=== PATIENT | female | born 2005 | race Caucasian/White ===

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

== ENCOUNTER → 2025-01-21 | Outpatient (CLI) | payer OTHER | LOC: LAB SHORT 17:18 → LAB 17:18 | DX: Z32.01 Encounter for pregnancy test, result positive (principal) | CPT/HCPCS: 84702 ==

== ENCOUNTER → 2025-02-18 | Outpatient (CLI) | payer OTHER ==
[2025-02-18 15:51] LABS: Source, Urine Clean Catch
[2025-02-18 17:23] LABS: Appearance, Urine Clear (Clear); Bilirubin, Urine Neg (Neg); Blood, Urine 1+ (Neg); Color, Urine Yellow (P-Yellow); Glucose Qualitative, Urine Neg (Neg); Ketones, Urine Neg (Neg); Leukocyte Esterase, Urine Neg (Neg); Nitrite, Urine Neg (Neg); Protein, Urine 1+ (Neg); Specific Gravity, Urine 1.025 (1.003-1.022); Urobilinogen, Urine NORM (Normal)
[2025-02-18 17:32] LABS: BASOPHILS ABSOLUTE AUTO 0.04 K/mm3 (0.00-0.23); BASOPHILS PERCENT AUTO 1 % (0-2); EOSINOPHILS ABSOLUTE AUTO 0.16 K/mm3 (0.00-0.68); EOSINOPHILS PERCENT AUTO 2 % (0-6); Hematocrit 39.8 % (33.0-51.0); IMMATURE GRAN ABSOLUTE AUTO 0.02 K/mm3 (0.00-0.10); IMMATURE GRAN PERCENT AUTO 0 % (0-1); LYMPHOCYTES ABSOLUTE AUTO 1.25 K/mm3 (0.84-5.20); LYMPHOCYTES PERCENT AUTO 17 % (21-46); MONOCYTES ABSOLUTE AUTO 0.36 K/mm3 (0.16-1.47); MONOCYTES PERCENT AUTO 5 % (4-13); Mean Corpuscular HGB 26.1 pg (26.0-34.0); Mean Corpuscular HGB Conc 32.7 g/dL (31.5-36.5); Mean Corpuscular Volume 80 fL (80-100); NEUTROPHILS ABSOLUTE AUTO 5.65 K/mm3 (1.96-9.15); NEUTROPHILS PERCENT AUTO 76 % (41-73); Platelet Count 334 K/mm3 (150-400); RDW Coefficient Variation 14.6 % (11.7-14.2); RDW Standard Deviation 42.1 fL (35.1-46.3); Red Blood Cell Count 4.99 M/mm3 (3.80-5.20); White Blood Cell Count 7.48 K/mm3 (4.00-11.30)
[2025-02-18 17:35] LABS: Bacteria Few /hpf; Calcium Oxalate Crystals Few /hpf; Mucus Light (0-Heavy); Squamous Epithelial Cells Few /hpf (Few); White Blood Cells, Urine 0-2 /hpf (0-5)
[2025-02-21 09:33] LABS: HEPATITIS B SURFACE ANTIGEN Negative (Negative)
[2025-02-21 13:35] LABS: HIV 1,2 COMBO ANTIGEN/ANTIBODY Negative (Negative)
[2025-02-21 13:54] LABS: HEPATITIS C AB CIA INTERP Negative (Negative); HEPATITIS C ANTIBODY CIA INDEX 0.09 IV
== END ==
LOC: LAB 13:59 → LAB SHORT 13:59
PROVIDERS: Registered Nurse Community Health
DX: Z34.91 Encounter for supervision of normal pregnancy, unspecified, first trimester (principal)
CPT/HCPCS: 81001; 84443; 86803; 87086; 87340; 87389

== ENCOUNTER → 2025-02-28 | Outpatient (CLI) | payer OTHER ==
[2025-02-28 18:17] LABS: Chlamydia Trachomatis Urine NOT DETECTED (NOT DETECT); Neisseria Gonorrhoea Urine NOT DETECTED (NOT DETECT)
== END ==
LOC: LAB SHORT 16:15 → LAB 16:15
PROVIDERS: Registered Nurse Community Health
DX: Z34.91 Encounter for supervision of normal pregnancy, unspecified, first trimester (principal)
CPT/HCPCS: 87491; 87591

== ENCOUNTER 2025-09-28 01:02 | Inpatient (IN) | payer OTHER ==
[~2025-09-28] VITALS: Ht 175.3 cm; Wt 118.2 kg
[2025-09-28] VITALS (86 sets, daily range): BP systolic 92–165; BP diastolic 52–93
[2025-09-28] MEDS ORDERED: Carboprost Tromethamine 250 MCG/ML 1ML Amp IM PRN (02:00)
[2025-09-28] MEDS ORDERED: OXYTOCIN/RINGER'S LACTATE 500 ML IV PRN (02:00)
[2025-09-28] MEDS ORDERED: Oxytocin 10 Unit / ML Vial IM PRN (02:00)
[2025-09-28] MEDS ORDERED: ePHEDrine Sulfate 50 MG/ML 1ML Injection XX PRN (02:00)
[2025-09-28] MEDS ORDERED: Methylergonovine Maleate 0.2MG / ML 1ML Amp IM PRN (02:00)
[2025-09-28] MEDS ORDERED: Ondansetron HCl 2 MG / ML 2ML Vial IV PRN ×2 (02:00→13:15)
[2025-09-28] MEDS ORDERED: Tranexamic Acid 100 ML IV PRN (02:00)
[2025-09-28] MEDS ORDERED: FentaNYL 2mcg/ml-Bup 0.1% Epd 250 ML EPI PRN (02:00)
[2025-09-28 02:34] LABS: BASOPHILS ABSOLUTE AUTO 0.03 K/mm3 (0.00-0.23); BASOPHILS PERCENT AUTO 0 % (0-2); EOSINOPHILS ABSOLUTE AUTO 0.06 K/mm3 (0.00-0.68); EOSINOPHILS PERCENT AUTO 0 % (0-6); Hematocrit 32.5 % (33.0-51.0); Hemoglobin 10.5 g/dL (11.5-16.0); IMMATURE GRAN ABSOLUTE AUTO 0.06 K/mm3 (0.00-0.10); IMMATURE GRAN PERCENT AUTO 0 % (0-1); LYMPHOCYTES ABSOLUTE AUTO 1.35 K/mm3 (0.84-5.20); LYMPHOCYTES PERCENT AUTO 9 % (21-46); MONOCYTES ABSOLUTE AUTO 0.61 K/mm3 (0.16-1.47); MONOCYTES PERCENT AUTO 4 % (4-13); Mean Corpuscular HGB Conc 32.3 g/dL (31.5-36.5); Mean Corpuscular Volume 72 fL (80-100); NEUTROPHILS ABSOLUTE AUTO 12.21 K/mm3 (1.96-9.15); NEUTROPHILS PERCENT AUTO 85 % (41-73); NRBC ABSOLUTE 0.00 K/mm3 (0.00-0.02); NRBC Auto 0.0 /100 WBC (0.0-0.2); Platelet Count 339 K/mm3 (150-400); RDW Coefficient Variation 15.4 % (11.7-14.2); RDW Standard Deviation 39.1 fL (35.1-46.3)
[2025-09-28 02:53] LABS: Alanine Aminotransfer (ALT/SGP 18.0 U/L (12-78); Albumin, Blood 2.4 g/dL (3.4-5.0); Albumin/Globulin Ratio 0.6 (0.8-1.8); Anion Gap 13.0 mmol/L (3-11); Aspartate Aminotrans (AST/SGOT 17.0 U/L (12-37); Bilirubin, Total 0.4 mg/dL (0.1-1.0); Blood Urea Nitrogen 9.0 mg/dL (8-24); CO2, Blood 18.0 mmol/L (21-32); Calcium, Blood 8.7 mg/dL (8.5-10.1); Chloride, Blood 110.0 mmol/L (98-108); Creatinine, Blood 0.63 mg/dL (0.40-1.00); Globulin, Blood 4.3 g/dL (2.2-4.0); Glucose, Blood 79.0 mg/dL (70-99); Potassium, Blood 3.6 mmol/L (3.5-5.5); Sodium, Blood 137.0 mmol/L (136-145); Total Protein, Blood 6.7 g/dL (6.4-8.2)
[2025-09-28] MEDS ORDERED: FentaNYL Citrate 50 MCG/ML 2 ML Injection ONE ×2 (03:50→11:45)
[2025-09-28] MEDS ORDERED: FentaNYL Citrate 50 MCG/ML 2 ML Injection IV PRN ×2 (03:55→13:05)
[2025-09-28 04:58] LABS: Creatinine, Urine Random 253.0 mg/dL (27.00-270.00)
[2025-09-28 05:13] LABS: Protein, Urine Random 95.3 mg/dL (0.0-11.9); Protein/Creat Ratio, Ur Random 0.4
[2025-09-28] MEDS ORDERED: CeFAZolin Sodium 3,000 MG in NS 100 ML IV SCH (11:05)
[2025-09-28] MEDS ORDERED: Citric Acid/Sodium Citrate 30 ML BTL ONE (11:10)
[2025-09-28] MEDS ORDERED: Metoclopramide HCl 5MG / ML 2ML Vial ONE (11:10)
[2025-09-28] MEDS ORDERED: Lidocaine HCl 2% 10 ML SDA ONE (11:15)
[2025-09-28] MEDS ORDERED: Phenylephrine HCl 100 MCG/ML-NS 10MLSYR (1MG/10ML) ONE (11:15)
[2025-09-28] MEDS ORDERED: Metoclopramide HCl 5MG / ML 2ML Vial IV ONE (11:15)
[2025-09-28] MEDS ORDERED: Citric Acid/Sodium Citrate 30 ML BTL PO ONE (11:15)
[2025-09-28] MEDS ORDERED: Oxytocin 10 Unit / ML Vial ONE ×2 (11:20→12:02)
[2025-09-28] MEDS ORDERED: HYDROmorphone HCl/Pf 1MG SYR ONE ×2 (11:48→12:05)
[2025-09-28] MEDS ORDERED: Ondansetron HCl 2 MG / ML 2ML Vial ONE (11:50)
[2025-09-28 12:01] LABS: PCO2 Cord - Arterial 51.6 mmHg (40-50); PO2 Cord - Arterial < 12.3 mmHg (16-20); pH Cord - Arterial 7.27 (7.28-7.35)
[2025-09-28 12:03] LABS: PCO2 Cord - Venous 41.7 mmHg (40-50); PO2 Cord - Venous 17.4 mmHg (28-32); pH Umbilical Cord - Venous 7.33 (7.26-7.35)
--- NOTE | 2025-09-28 12:05 | NUR ---
09/28/25 1205 Lilliam,Melody P VIABLE MALE BORN 1145. CORD BLOOD GIVEN TO ZHENG HERNANDEZ, CORD SEGMENT FOR CORD GASES SENT WITH RT BELL Ortiz AND STUDENTBEN.
[2025-09-28] MEDS ORDERED: Ketorolac Tromethamine 30mg Vial ONE (12:11)
[2025-09-28] MEDS ORDERED: Morphine Sulfate 4 MG/1 ML Injection IV PRN (13:10)
[2025-09-28] MEDS ORDERED: Metoclopramide HCl 5MG / ML 2ML Vial IV PRN (13:15)
[2025-09-28] MEDS ORDERED: Magnesium Hydroxide Conc 10 ML UDC PO PRN (13:25)
[2025-09-28] MEDS ORDERED: Morphine Sulfate 10 MG/ML 1MLSYR IM PRN (13:30)
[2025-09-28] MEDS ORDERED: Ketorolac Tromethamine 30mg Vial IV SCH (14:00)
--- NOTE | 2025-09-28 14:31 | NUR ---
pt trying to rest, baby sleeping in open crib, fob sleeping on dad bed
[2025-09-28] MEDS ORDERED: Ketorolac Tromethamine 30mg Vial IV ONE (18:00)
[2025-09-28] MEDS ORDERED: Ketorolac Tromethamine 30mg Vial IV PRN (22:10)
--- NOTE | 2025-09-28 23:27 | NUR ---
patient has no other needs at this time.
[2025-09-29 04:04] VITALS: BP 144/87
[2025-09-29 04:14] VITALS: BP 140/86
[2025-09-29 05:47] LABS: BASOPHILS ABSOLUTE AUTO 0.04 K/mm3 (0.00-0.23); BASOPHILS PERCENT AUTO 0 % (0-2); EOSINOPHILS ABSOLUTE AUTO 0.07 K/mm3 (0.00-0.68); EOSINOPHILS PERCENT AUTO 1 % (0-6); Hematocrit 26.0 % (33.0-51.0); Hemoglobin 8.4 g/dL (11.5-16.0); IMMATURE GRAN ABSOLUTE AUTO 0.10 K/mm3 (0.00-0.10); IMMATURE GRAN PERCENT AUTO 1 % (0-1); LYMPHOCYTES ABSOLUTE AUTO 1.33 K/mm3 (0.84-5.20); LYMPHOCYTES PERCENT AUTO 10 % (21-46); MONOCYTES ABSOLUTE AUTO 0.85 K/mm3 (0.16-1.47); MONOCYTES PERCENT AUTO 6 % (4-13); Mean Corpuscular HGB Conc 32.3 g/dL (31.5-36.5); Mean Corpuscular Volume 72 fL (80-100); NEUTROPHILS ABSOLUTE AUTO 11.44 K/mm3 (1.96-9.15); NEUTROPHILS PERCENT AUTO 83 % (41-73); NRBC ABSOLUTE 0.00 K/mm3 (0.00-0.02); NRBC Auto 0.0 /100 WBC (0.0-0.2); Platelet Count 248 K/mm3 (150-400); RDW Coefficient Variation 15.5 % (11.7-14.2); RDW Standard Deviation 39.6 fL (35.1-46.3)
[2025-09-29 07:32] VITALS: BP 133/70
[2025-09-29] MEDS ORDERED: Prenatal Vit/FE Fumarate/FA 1 Tab PO SCH (09:00)
[2025-09-29] MEDS ORDERED: Sod Ferric Gluc Complx/Sucrose 125 MG in NS 100 ML IV SCH (10:27)
[2025-09-29 16:35] VITALS: BP 127/80
--- NOTE | 2025-09-29 18:04 | NUR ---
D/C TEACHING COMPLETED, ALL QUESTIONS AND CONCERNS ANSWERED.
[2025-09-29 19:20] VITALS: BP 143/86
[2025-09-29 23:34] VITALS: BP 141/83
--- NOTE | 2025-09-29 23:57 | NUR ---
reviewed blood pressure readings of 143/86 and 141/83 with charge loader rosenda valdes. pt denies any headache, RUQ pain or blurred vision. pt states her pain is a 3/10. denies need for any pain medication at this time. through shared decision making with charge loader, we are no calling the provioder to report the b/p's at this time. Additionally, the pt has had multiple b/p's >140 throughout her stay without treatment, as well as pt has a known protein creatnine ratio of 0.4 that the provider is aware of.
[2025-09-30 03:45] VITALS: BP 131/83
[2025-09-30 08:17] VITALS: BP 141/91
[2025-09-30 08:26] VITALS: BP 132/83
[2025-09-30] MEDS ORDERED: Percocet 5-3251 EACH PO (09:56)
[2025-09-30] MEDS ORDERED: IBUP800 PO (09:56)
== END 2025-09-30 11:10 | disposition home or self-care (01) | DRG 788 ==
LOC: OBS 01:02 → BC 01:07 → OBS 01:53 → BC 01:56
PROVIDERS: Family Medicine; ADMIT Registered Nurse Community Health
PROC: 4A1HXCZ Monitoring of Products of Conception, Cardiac Rate, External Approach (ICD-10-PCS; 2025-09-27)
PROC: 00HU33Z Insertion of Infusion Device into Spinal Canal, Percutaneous Approach (ICD-10-PCS; 2025-09-28)
PROC: 3E0R3BZ Introduction of Anesthetic Agent into Spinal Canal, Percutaneous Approach (ICD-10-PCS; 2025-09-28)
PROC: 10D00Z1 Extraction of Products of Conception, Low, Open Approach (ICD-10-PCS; 2025-09-28)
PROC: 10907ZC Drainage of Amniotic Fluid, Therapeutic from Products of Conception, Via Natural or Artificial Opening (ICD-10-PCS; principal; 2025-09-28 10:30)
DX: O36.63X0 Maternal care for excessive fetal growth, third trimester, not applicable or unspecified (principal); Z3A.39 39 weeks gestation of pregnancy; Z37.0 Single live birth; O77.0 Labor and delivery complicated by meconium in amniotic fluid; O76 Abnormality in fetal heart rate and rhythm complicating labor and delivery; O90.81 Anemia of the puerperium; O99.893 Other specified diseases and conditions complicating puerperium; R03.0 Elevated blood-pressure reading, without diagnosis of hypertension
CPT/HCPCS: 36415; 51702; 80053; 82570; 82803; 84156; 85025; 86850; 86900; 86901; 86923; 99213; 99214; A9270; J0690; J1171; J1885; J2003; J2371; J2405; J2590; J2765; J2916; J3010; J7120